=== PATIENT | male | born 1960 | race Caucasian/White ===

== ENCOUNTER 2017-08-05 06:51 | Emergency (ER) | payer MEDICAID, MEDICARE ==
[2017-08-05 06:51] VITALS: BMI 19.3
[2017-08-05 07:48] LABS: BASO % 0.5 % (0.0-2.0); EOS # 0.1 K/uL (0.0-0.7); EOS % 1.1 % (0.0-4.0); HEMOGLOBIN 13.6 g/dL (12.0-18.0); LYMPH # 1.7 K/uL (1.0-4.3); LYMPH % 25.1 % (20.0-40.0); MEAN CELL VOLUME 88.2 fL (80.0-94.0); MEAN CORPUSCULAR HEMOGLOBIN 30.3 pg (27.0-31.0); MEAN CORPUSCULAR HGB CONC 34.3 g/dL (33.0-37.0); MEAN PLATELET VOLUME 8.4 fL (7.2-11.7); MONO # 0.4 K/uL (0.0-0.8); MONO % 6.6 % (0.0-10.0); NEUT # 4.5 K/uL (1.8-7.0); NEUT % 66.7 % (50.0-75.0); RBC 4.51 Mil/uL (4.40-5.90); RED CELL DISTRIBUTION WIDTH 15.2 % (11.5-14.5); SQUAMOUS EPITHIAL < 1 /hpf (0-5); URINE BILIRUBIN NEGATIVE (NEGATIVE); URINE BLOOD 1+ (NEGATIVE); URINE CLARITY Clear (Clear); URINE COLOR Straw (YELLOW); URINE GLUCOSE (UA) NORMAL (Normal); URINE LEUKOCYTE ESTERASE NEG Leu/uL (Negative); URINE PROTEIN NEGATIVE (NEGATIVE); URINE UROBILINOGEN NORMAL mg/dL (0.2-1.0); WHITE BLOOD COUNT 6.7 K/uL (4.8-10.8)
[2017-08-05 08:12] LABS: ALB/GLOB RATIO 1.3 (1.0-2.1); ALBUMIN 4.6 g/dL (3.5-5.0); ALT/SGPT 14 U/L (21-72); AST/SGOT 33 U/L (17-59); BLOOD UREA NITROGEN 7 mg/dL (9-20); CALCIUM 9.5 mg/dl (8.6-10.4); GFR AFRICAN-AMERICAN > 60; GFR NON-AFRICAN AMERICAN > 60
[2017-08-05 08:13] LABS: ACETAMINOPHEN < 10.0 ug/mL (10.0-30.0); SALICYLATE < 1.0 mg/dL 1
[2017-08-05 08:15] LABS: BARBITURATES, UR NEGATIVE (NEGATIVE); BENZODIAZEPINES, UR NEGATIVE (NEGATIVE); OPIATES, UR NEGATIVE (NEGATIVE); PHENCYCLIDINE, UR NEGATIVE (NEGATIVE)
--- NOTE | 2017-08-05 08:36 | RAD ---
Chest x-ray single frontal view History: Baseline. Comparison: None available. Findings: Bilateral costophrenic angles were excluded from this study. Mild venous congestion. Small nodular densities at the left lung base may represent vessels on end. Upper lobe granulomatous changes. Heart size within normal limits. Degenerative changes in the spine and shoulders. Impression: Bilateral costophrenic angles were excluded from this study. Mild venous congestion. Small nodular densities at the left lung base may represent vessels on end. Upper lobe granulomatous changes.
--- NOTE | 2017-08-05 09:07 | C.PDOC ---
History Of Present Illness 56-year-old male, is brought to the emergency department with complaints of bizarre behavior. Patient comes in with tangential thoughts and rapid speech. He does not offer any physical complaints at this time. No SI/HI. Time Seen by Provider: 08/05/17 07:12 Chief Complaint (Nursing): Psychiatric Evaluation History Per: Patient Current Symptoms Are (Timing): Still Present Past Medical History Reviewed: Historical Data, Nursing Documentation, Vital Signs Vital Signs: Last Vital Signs Temp 98 F 08/05/17 18:39 Pulse 79 08/05/17 18:39 Resp 18 08/05/17 18:39 BP 136/75 08/05/17 18:39 Pulse Ox 97 08/05/17 18:44 - Medical History PMH: Schizophrenia, Sexually Transmitted Disease Denies: Diabetes, Hepatitis, HIV, HTN, Chronic Kidney Disease, Seizures Family History: States: No Known Family Hx - Social History Hx Tobacco Use: Yes Hx Alcohol Use: Yes Hx Substance Use: No - Immunization History Hx Tetanus Toxoid Vaccination: No Hx Influenza Vaccination: No Hx Pneumococcal Vaccination: No Review Of Systems Psych: Positive for: Other (Bizarre behavior, tangential thoughts). Negative for: Suicidal ideation Physical Exam - Physical Exam Appears: Non-toxic, No Acute Distress, Other (bizarre affect) Skin: Normal Color, Warm, Dry, No Rash Head: Normacephalic Eye(s): bilateral: PERRL Nose: Normal Oral Mucosa: Moist Lips: Normal Appearing Neck: Normal ROM Cardiovascular: Rhythm Regular, No Murmur Respiratory: Normal Breath Sounds, No Accessory Muscle Use Gastrointestinal/Abdominal: Soft, No Tenderness Extremity: No Deformity, No Swelling Neurological/Psych: Other (awake and alert. no focal deficit.) ED Course And Treatment - Laboratory Results Result Diagrams: 08/05/17 07:39 08/05/17 07:39 ECG: Interpreted By Me, Viewed By Me ECG Rhythm: Sinus Rhythm ECG Interpretation: No Acute Changes Rate From EC O2 Sat by Pulse Oximetry: 97 (RA) Pulse Ox Interpretation: Normal Medical Decision Making Medical Decision Making: Plan: * EKG * Bloodwork * UA * Reassess and DIsposition * * patient is medically cleared for crisis. * * 1844- [place] [facility] Discussed With DrAlexi: Darrel Andrew Counseled Patient/Family Regarding: Studies Performed, Diagnosis - Disposition Disposition: HOSPITALIZED Disposition Time: 09:10 Condition: FAIR Forms: [facility] (Yakut) - Clinical Impression Clinical Impression: Schizoaffective disorder - Scribe Statement The provider has reviewed the documentation as recorded by the Scribe (Cruz Solomon) All medical record entries made by the Scribe were at my direction and personally dictated by me. I have reviewed the chart and agree that the record accurately reflects my personal performance of the history, physical exam, medical decision making, and the department course for this patient. I have also personally directed, reviewed, and agree with the discharge instructions and disposition. Physician Patient Turnover Patient Signed Over To: Rodger Gonsalves Handoff Comments: [place] [facility]
--- NOTE | 2017-08-05 15:37 | PCM.PSYCH ---
Initial Psychiatric Evaluation - Initial Psychiatric Evaluation Type of Admission: Involuntary Chief Complaint (in patient's own words): No c/c - Seen for a consult History of Present Illness and Precipitating Events: The patient is seen, chart reviewed and case discussed. The patient is a very poor historian, he is extremely told disordered and psychotic. There is no collateral information. The patient is awaiting transfer to [facility] for involuntary admission. He denies ever psych symptom, but when he tries to talk he does not make sense at all because he is circumstantial, tangential, derailment and even incoherent at times. He keeps talking about a ticket but then changes the subject again and again. Past psych history: Previous psychiatric admissions for schizophrenia. Denies drug and alcohol use Medical history: Unknown Family psych history unknown Past Psychiatric History - Past Psychiatric History Previous Treatment History: Inpatient Pertinent Medical Hx (Current Medical&Sleep Prob, Allergies): Allergies Allergy/AdvReac Type Severity Reaction Status Date / Time No Known Allergies Allergy Unverified 08/05/17 07:11 Unobtainable 08/05/17 Review of Systems - Neurological Neurological: UNREMARKABLE - Psychiatric Psychiatric: Abnormal Sleep Pattern, Auditory Hallucinations (likely), Paranoia (likely). absent: Homicidal Ideation, Suicidal Ideation Mental Status Examination - Personal Presentation Personal Presentation: Looks older than stated age (disheveled and malodorous) - Affect Affect: Blunted - Motor Activity Motor Activity: Calm - Reliability in Providing Information Reliability in Providing Information: Poor, due to alteration in thoughts - Speech Speech: Disorganized, Tangential, Incoherent - Mood Mood: Neutral - Formal Thought Process Formal Thought Process: Delusions (likely), Loosening of associations, Flight of ideas - Cognitive Functions Orientation: Time Sensorium: Alert Attention/Concentration: Easily distracted Abstract Thinking: [place] Judgement: Imparied, as evidence by: Poor judgement Memory: Recent impaired, as evidence by: Inability to recall events of the day, Remote impaired as evidenced by: Inability to recall sig life events - Risk Risk: Diminished functioning - Limitations Limitations: Living alone DSM 5 DX - DSM 5 DSM 5 Diagnosis: chronic schizophrenia, acute exacerbation - Recommended/Plan of Treatment Treatment Recommendations and Plan of Treatment: To be transferred to [facility] when there is a bed As needed medications ordered He is refusing standing medications Close observation 31 min
[2017-08-06 03:48] VITALS: BP 124/78; RESP 18; TEMP 98
[2017-08-06 04:24] VITALS: PULSE 64; O2SAT 97
--- NOTE | 2017-08-06 14:51 | CARD ---
APPROVED REPORT EKG Measurement Heart [id number] <Conclusion> Normal sinus rhythm Normal ECG
== END 2017-08-06 05:10 | disposition designated cancer center or children's hospital (05) ==
LOC: C.ER 06:51 → C.9E 09:09 → UNDOADMIN 09:09 → C.ER 08-06 05:10
DX: F25.9 Schizoaffective disorder, unspecified (principal)
CPT/HCPCS: 36415; 71045; 80053; 81001; 85025; 93005; 99285; G0480